=== PATIENT | female | born 1995 ===

== ENCOUNTER 2017-06-08 02:10 | Emergency (ER) | payer OTHER ==
[2017-06-08 02:22] VITALS: BP 116/73; PULSE 119; RESP 18; TEMP 98.2; O2SAT 98
--- NOTE | 2017-06-08 02:28 | ED PDOC ---
HPI: Psych/Substance Abuse Time Seen by Provider: 06/08/17 02:15 Chief Complaint (Nursing): Alcohol Ingestion Chief Complaint (Provider): ETOH History Per: Patient Additional Complaint(s): 22 yo female, no PMH, presents to ED via [facility] for evaluation of public intoxication. Pt was found in [employer] sleeping. Pt is awake and alert. Friend at bedside, admits Pt was drinking Tequila Sunrises tonight. Past Medical History Reviewed: Nursing Documentation, Vital Signs Vital Signs: Last Vital Signs Temp 98.2 F 06/08/17 02:16 Pulse 119 H 06/08/17 02:16 Resp 18 06/08/17 02:16 BP 116/73 06/08/17 02:16 Pulse Ox 98 06/08/17 02:16 - Medical History PMH: No Chronic Diseases - Surgical History Surgical History: No Surg Hx - Family History Family History: States: No Known Family Hx - Living Arrangements Living Arrangements: With Family - Social History Current smoker - smoking cessation education provided: No Alcohol: None Drugs: Denies - Allergies Allergies/Adverse Reactions: Allergies Allergy/AdvReac Type Severity Reaction Status Date / Time No Known Allergies Allergy Verified 06/08/17 02:21 Review of Systems ROS Statement: Except As Marked, All Systems Reviewed And Found Negative Physical Exam - Reviewed Nursing Documentation Reviewed: Yes Vital Signs Reviewed: Yes - Physical Exam Appears: Positive for: Well, Non-toxic, No Acute Distress Head Exam: Positive for: ATRAUMATIC, NORMAL INSPECTION, NORMOCEPHALIC Skin: Positive for: Normal Color, Warm, DRY Eye Exam: Positive for: EOMI, Normal appearance, PERRL ENT: Positive for: Normal ENT Inspection Neck: Positive for: Normal, Painless ROM Cardiovascular/Chest: Positive for: Regular Rate, Rhythm Respiratory: Positive for: CNT, Normal Breath Sounds Gastrointestinal/Abdominal: Positive for: Normal Exam, Bowel Sounds, Soft Back: Positive for: Normal Inspection Extremity: Positive for: Normal ROM Neurologic/Psych: Positive for: Alert, Oriented - ECG O2 Sat by Pulse Oximetry: 98 Medical Decision Making Medical Decision Making: Pt awake, alert and oriented. denie snay nausea or vomiting. Pt's brother presents to Bedside, sober, willing to drive Pt home. Disposition - Clinical Impression Clinical Impression: Alcohol ingestion - Patient ED Disposition Is Patient to be Admitted: No - Disposition Disposition: Routine/Home Disposition Time: 02:29 Condition: STABLE Instructions: Alcohol Use - When Is Drinking a Problem? Forms: [facility] (Lao)
== END 2017-06-08 02:32 | disposition home or self-care (01) ==
LOC: H.ER 02:10
DX: F10.10 Alcohol abuse, uncomplicated (principal)